=== PATIENT | female | born 1960 | race Caucasian/White ===

== ENCOUNTER 2022-04-11 09:08 | Inpatient (IN) | payer OTHER ==
[~2022-04-11] VITALS: Ht 167.6 cm; Wt 131.2 kg
[2022-04-11 10:16] LABS: Basophils # (auto) 0 10 ^3/uL (0-0.2); Basophils % (auto) 0.5 % (0.0-2.0); Eosinophils # (auto) 0.1 10 ^3/uL (0-0.8); Eosinophils % (auto) 1.9 % (0.0-7.0); Hematocrit 41.1 % (36.0-46.0); Hemoglobin 13.5 g/dL (12.2-16.2); Lymphocytes # (auto) 1.4 10 ^3/uL (0.4-5.4); Lymphocytes % (auto) 22.9 % (10.0-50.0); Mean Corpuscular Hgb Conc. 32.7 g/dL (32.0-36.0); Mean Corpuscular Volume 88.7 fL (80.0-100.0); Monocytes # (auto) 0.4 10 ^3/uL (0-1.3); Monocytes % (auto) 7.4 % (0.0-12.0); Neutrophils % (auto) 67.3 % (37.0-80.0); Red Blood Cells 4.64 10^6/uL (4.0-5.20); Red Cell Distribution Width 15.2 % (11.8-14.3)
[2022-04-11 10:27] LABS: Albumin 3.6 g/dL (3.4-5.0); BUN/Creatinine Ratio 19.1; Bilirubin, Total 0.5 mg/dL (0.2-1.0); Calcium 8.6 mg/dL (8.5-10.1); Potassium 4.3 mmol/L (3.5-5.1); Total Protein 6.7 g/dL (6.4-8.2)
[2022-04-11] MEDS ORDERED: cloNIDine HCL 0.1 MG TAB PO ONE (10:30)
[2022-04-11 10:39] LABS: INR 0.96 (0.9-1.15); Partial Thromboplastin Time 27.9 sec (24.6-33.4)
[2022-04-11] MEDS ORDERED: ENOXAPARIN SOD 100 MG/1 ML SYRINGE SC ONE (10:45)
[2022-04-11] MEDS ORDERED: cloNIDine HCL 0.1 MG TAB PO PRN (11:30)
[2022-04-11] MEDS ORDERED: MORPHINE SULFATE INJ 2 MG/ml SYRG IV PRN (11:30)
[2022-04-11] MEDS ORDERED: HYDROcodone-ACET 10/325MG TAB PO PRN (11:30)
[2022-04-11] MEDS ORDERED: NITROGLYCERIN 0.4 MG SL TAB SL PRN (11:30)
[2022-04-11 15:50] LABS: Urine Bacteria NONE SEEN /hpf (None Seen); Urine Blood Negative /uL (Negative); Urine Hyaline Cast FEW /lpf (0 - 2); Urine Mucus FEW (None Seen); Urine WBC 14 /hpf (0 - 5)
[2022-04-11 17:42] VITALS: BP 187/68
[2022-04-11] MEDS ORDERED: SERT50TA19 PO (18:49)
[2022-04-11] MEDS ORDERED: LOSA100T22 PO (18:49)
[2022-04-11] MEDS ORDERED: CLOP75TA70 PO (18:49)
[2022-04-11] MEDS ORDERED: ATOR10TA PO (18:49)
[2022-04-11] MEDS ORDERED: PROP80CA43 PO (18:49)
[2022-04-11] MEDS ORDERED: HYDR12.56 PO (18:49)
[2022-04-11] MEDS ORDERED: MIRT-66 PO (18:49)
[2022-04-11 20:00] VITALS: BP 119/44
[2022-04-11 22:00] VITALS: BP 119/44
[2022-04-11] MEDS ORDERED: ENOXAPARIN SOD 150 MG/1 ML SYRINGE SC SCH (22:00)
[2022-04-12 05:00] VITALS: BP 127/54
[2022-04-12 08:00] VITALS: BP 150/77
[2022-04-12 09:00] VITALS: BP 150/77
[2022-04-12] MEDS ORDERED: ASPirin 81 mg TAB PO SCH (10:00)
[2022-04-12] MEDS: CLOPIDOGREL BISULFATE 75 MG TAB PO SCH (10:58)
[2022-04-12] MEDS: LISINOPRIL 10 MG TAB PO SCH (10:59)
[2022-04-12 13:00] VITALS: BP 153/88
[2022-04-12] MEDS ORDERED: fentaNYL CITRATE 100 MCG/2 ML VL ONE (17:18)
[2022-04-12] MEDS ORDERED: ANGIOMAX 250 MG VIAL IV ONE (17:19)
[2022-04-12] MEDS ORDERED: MIDAZOLAM HCL 2MG/2ML 2ml VIAL (1mg/ml) ONE (17:19)
[2022-04-12] MEDS ORDERED: VERAPAMIL 2.5MG/ML INJ 2ML VIAL IV ONE (17:19)
[2022-04-12] MEDS ORDERED: IODIXANOL 320MG/ML 100ML BTL IV ONE (17:19)
[2022-04-12] MEDS ORDERED: HEPARIN SODIUM (PORCINE) 5000 UNITS/ML 1ML VIAL ONE (17:19)
[2022-04-12] MEDS ORDERED: LIDOCAINE 2%HCL (LOCAL ANESTH.) INJ 20ML MDV ONE (17:20)
[2022-04-12] MEDS ORDERED: SODIUM CHL 0.9% 50 ML ONE ×2 (17:20→17:33)
[2022-04-12] MEDS ORDERED: NITROGLYCERIN 5MG/ML 10ML VIAL IV ONE (17:33)
[2022-04-12] MEDS ORDERED: IOHEXOL 350 MG/ML 100ML IJ ONE (18:41)
[2022-04-12] MEDS ORDERED: CLOPIDOGREL 300 MG TAB ONE (18:54)
[2022-04-12] MEDS ORDERED: ASPirin 81 mg TAB ONE (18:59)
[2022-04-12] MEDS ORDERED: LABETALOL HCL 5 MG/ML ML 20ML VIAL IV ONE (19:10)
[2022-04-12] MEDS ORDERED: LABETALOL HCL 5 MG/ML 4ML SYRINGE IV PRN (19:15)
[2022-04-12 20:00] VITALS: BP 150/77
[2022-04-12 22:00] VITALS: BP 149/70
[2022-04-13 05:00] VITALS: BP 145/55
[2022-04-13 08:00] VITALS: BP 150/77
[2022-04-13 08:55] VITALS: BP 132/49
[2022-04-13] MEDS: CLOPIDOGREL BISULFATE 75 MG TAB PO SCH (09:40)
[2022-04-13] MEDS: LISINOPRIL 10 MG TAB PO SCH (09:43)
[2022-04-13 11:59] VITALS: BP 132/49
[2022-04-13 12:45] VITALS: BP 131/48
== END 2022-04-13 13:15 | DRG 287 ==
LOC: EEVIPCON 09:08 → ER 09:08 → EDBD 09:08 → TELE 11:26 → TELE-WESTW 17:33
PROVIDERS: ADMIT Internal Medicine; ATTEND Internal Medicine
PROC: 4A023N7 Measurement of Cardiac Sampling and Pressure, Left Heart, Percutaneous Approach (ICD-10-PCS; principal; 2022-04-12)
PROC: B2111ZZ Fluoroscopy of Multiple Coronary Arteries using Low Osmolar Contrast (ICD-10-PCS; 2022-04-12)
PROC: B2151ZZ Fluoroscopy of Left Heart using Low Osmolar Contrast (ICD-10-PCS; 2022-04-12)
PROC: 03HB03Z Insertion of Infusion Device into Right Radial Artery, Open Approach (ICD-10-PCS; 2022-04-12)
DX: I24.9 Acute ischemic heart disease, unspecified (principal); R42 Dizziness and giddiness; R00.1 Bradycardia, unspecified; Z20.822 Contact with and (suspected) exposure to COVID-19; I11.0 Hypertensive heart disease with heart failure; I50.9 Heart failure, unspecified; I25.10 Atherosclerotic heart disease of native coronary artery without angina pectoris; F32.A Depression, unspecified; I25.2 Old myocardial infarction; Z95.5 Presence of coronary angioplasty implant and graft; Z85.820 Personal history of malignant melanoma of skin; Z79.02 Long term (current) use of antithrombotics/antiplatelets; Z86.2 Personal history of diseases of the blood and blood-forming organs and certain disorders involving the immune mechanism; Z87.891 Personal history of nicotine dependence
CPT/HCPCS: 36415; 70450; 71045; 80053; 81001; 82565; 83880; 84484; 85025; 85379; 85610; 85730; 87426; 93005; 93458; 96372; 99152; 99153; 99291; G0378; J2250; J3490; Q9967

== ENCOUNTER 2023-01-15 18:54 | Inpatient (IN) | payer OTHER ==
[~2023-01-15] VITALS: Ht 170.2 cm; Wt 125.9 kg
[~2023-01-15 18:54] MED LIST: ATOR10TA PO; CLOP75TA70 PO; HYDR12.59 PO; LOSA100T13 PO; MIRT-94 PO; PROP80CA43 PO; SERT-206 PO
[2023-01-15 19:29] LABS: Basophils # (auto) 0.1 10 ^3/uL (0-0.2); Eosinophils # (auto) 0.1 10 ^3/uL (0-0.8); Eosinophils % (auto) 1.5 % (0.0-7.0); Hematocrit 44.3 % (36.0-46.0); Lymphocytes # (auto) 2.1 10 ^3/uL (0.4-5.4); Lymphocytes % (auto) 27.7 % (10.0-50.0); Mean Corpuscular Hemoglobin 29.4 pg (28.0-32.0); Mean Corpuscular Hgb Conc. 33.8 g/dL (32.0-36.0); Mean Corpuscular Volume 86.9 fL (80.0-100.0); Monocytes # (auto) 0.5 10 ^3/uL (0-1.3); Monocytes % (auto) 6.7 % (0.0-12.0); Neutrophils # (auto) 4.8 10 ^3/uL (1.6-8.6); Neutrophils % (auto) 63.1 % (37.0-80.0); Nucleated Red Blood Cells % 0.1 %; Red Cell Distribution Width 13.7 % (11.8-14.3); White Blood Cell 7.7 10^3/uL (4.4-10.8)
[2023-01-15 19:48] LABS: INR 0.99 (0.9-1.15); Partial Thromboplastin Time 28.7 SEC (24.5-34.5); Prothrombin Time 10.4 sec (9.3-11.8)
[2023-01-15 19:54] LABS: Alanine Aminotransferase 21 U/L (7-40); Alkaline Phosphatase 118 U/L (46-116); Anion Gap 8.9 (5-15); Aspartate Aminotransferase 12 U/L (13-40); BUN/Creatinine Ratio 17.4 (10.0-20.0); Bilirubin, Total 0.5 mg/dL (0.2-1.0); Blood Urea Nitrogen 16 mg/dL (9-23); Calcium 9.2 mg/dL (8.5-10.1); Carbon Dioxide 26.1 mmol/L (20-30); Chloride 105 mmol/L (98-107); Glucose 99 mg/dL (74-106); Lipase 28 U/L (12-53); Potassium 4.2 mmol/L (3.5-5.1); Sodium 140 mmol/L (136-145)
[2023-01-15 19:55] LABS: Total Protein 6.4 g/dL (5.7-8.2)
[2023-01-15] MEDS ORDERED: ASPirin 325 MG TAB PO ONE (23:30)
[2023-01-15 23:45] VITALS: PULSE 58; RESP 11; O2SAT 97
[2023-01-16] VITALS (7 sets, daily range): BP systolic 126–150; BP diastolic 62–95; PULSE 53–83; RESP 12–20; TEMP 97.4–97.9; O2SAT 93–100
[2023-01-16 00:46] LABS: Urine Bacteria NONE SEEN /hpf (None Seen); Urine Blood Negative /uL (Negative); Urine Clarity Clear (Clear); Urine Color Yellow (Yellow); Urine Protein, UAD Negative (Negative); Urine Specific Gravity 1.021 (1.001-1.035); Urine Urobilinogen Normal (Negative); Urine WBC <1 /hpf (0 - 5)
[2023-01-16] MEDS ORDERED: ACETAMINOPHEN 325 MG TAB PO PRN (03:45)
[2023-01-16] MEDS ORDERED: MORPHINE SULFATE 4 MG/ML SYR/VIAL IV PRN ×2 (03:45→14:00)
[2023-01-16] MEDS ORDERED: ONDANSETRON HCL 4 MG/2 ML VIAL IV PRN (03:45)
[2023-01-16] MEDS: ENOXAPARIN SOD 40 MG/0.4 ML SYRINGE SC SCH (10:28)
[2023-01-16] MEDS ORDERED: HYDROcodone-ACET 5/325MG TAB PO PRN ×2 (14:00)
[2023-01-16] MEDS ORDERED: LEVO25TA6 PO (14:39)
[2023-01-16] MEDS ORDERED: GADOTERATE MEG 10 MMOL/20ml INJ (0.5MMOL/ml) IV ONE (14:51)
[2023-01-16] MEDS: ATORVASTATIN 20 MG TAB PO SCH (21:21)
[2023-01-17 05:00] VITALS: BP 131/68; PULSE 69; RESP 18; TEMP 97.9; O2SAT 95
[2023-01-17 08:00] VITALS: BP 135/69; PULSE 72; PULSE 75; RESP 18; TEMP 97.4; O2SAT 92
[2023-01-17 09:00] VITALS: BP 135/69; PULSE 72; RESP 18; TEMP 97.4; O2SAT 92
[2023-01-17] MEDS ORDERED: ADENOSINE 108 MG in GIVE UN-DILUTED 0 ML IV ONE (09:15)
[2023-01-17] MEDS: LOSARTAN POTASSIUM 50 MG TAB PO SCH (09:57)
[2023-01-17] MEDS: ENOXAPARIN SOD 40 MG/0.4 ML SYRINGE SC SCH (09:57)
[2023-01-17 13:00] VITALS: BP 130/61; PULSE 70; RESP 20; TEMP 97.7; O2SAT 96
[2023-01-17 17:00] VITALS: BP 136/66; PULSE 76; RESP 20; TEMP 97.6; O2SAT 96
[2023-01-17 20:00] VITALS: PULSE 84
[2023-01-17] MEDS: ATORVASTATIN 20 MG TAB PO SCH (22:25)
[2023-01-18] VITALS (7 sets, daily range): BP systolic 122–156; BP diastolic 47–72; PULSE 66–75; RESP 16–20; TEMP 96.7–97.6; O2SAT 94–98
[2023-01-18] MEDS: LOSARTAN POTASSIUM 50 MG TAB PO SCH (09:08)
[2023-01-18] MEDS: ENOXAPARIN SOD 40 MG/0.4 ML SYRINGE SC SCH (09:09)
[2023-01-18] MEDS ORDERED: GADOTERATE MEG 10 MMOL/20ml INJ (0.5MMOL/ml) IV ONE (09:18)
[2023-01-18] MEDS: ATORVASTATIN 20 MG TAB PO SCH (21:06)
[2023-01-19 05:00] VITALS: BP 141/46; PULSE 63; RESP 18; TEMP 97.6; O2SAT 97
[2023-01-19 08:00] VITALS: BP 174/68; PULSE 60; PULSE 65; RESP 15; TEMP 98.4; O2SAT 98
[2023-01-19] MEDS: ENOXAPARIN SOD 40 MG/0.4 ML SYRINGE SC SCH (08:40)
[2023-01-19] MEDS: LOSARTAN POTASSIUM 50 MG TAB PO SCH (08:40)
[2023-01-19 08:59] VITALS: BP 174/68; PULSE 60; RESP 15; TEMP 98.4; O2SAT 98
[2023-01-19 10:39] VITALS: BP 151/41
[2023-01-19 12:41] VITALS: BP 154/64; PULSE 59; RESP 16; TEMP 97.7; O2SAT 97
[2023-01-19 12:46] VITALS: BP 154/64; PULSE 59; RESP 16; TEMP 97.7; O2SAT 97
== END 2023-01-19 15:15 | DRG 445 ==
LOC: EDBD 18:54 → EEVIPCON 18:54 → ER 18:54 → OVERFLOW 01-16 03:43 → WEST WING 01-16 11:56 → TELE-WESTW 01-17 19:36
PROVIDERS: ADMIT Internal Medicine; ATTEND Internal Medicine
DX: K80.20 Calculus of gallbladder without cholecystitis without obstruction (principal); Z68.41 Body mass index [BMI] 40.0-44.9, adult; D17.23 Benign lipomatous neoplasm of skin and subcutaneous tissue of right leg; E66.01 Morbid (severe) obesity due to excess calories; I11.0 Hypertensive heart disease with heart failure; E78.5 Hyperlipidemia, unspecified; I25.10 Atherosclerotic heart disease of native coronary artery without angina pectoris; I50.9 Heart failure, unspecified; F32.A Depression, unspecified; Z82.49 Family history of ischemic heart disease and other diseases of the circulatory system; Z85.820 Personal history of malignant melanoma of skin; Z95.5 Presence of coronary angioplasty implant and graft; I25.2 Old myocardial infarction
CPT/HCPCS: 36415; 71045; 73723; 74176; 74183; 76705; 78452; 80053; 81001; 82962; 83690; 83735; 84484; 85025; 85610; 85730; 93005; 93017; 96372; 99291; G0378; J0153